=== PATIENT | female | born 1970 | race Caucasian/White ===

== ENCOUNTER 2017-09-02 10:38 | Emergency (ER) | payer BC ==
[2017-09-02] MEDS ORDERED: BP MED (10:45)
[2017-09-02 11:15] VITALS: BP 133/83
== END 2017-09-02 11:22 | disposition home or self-care (01) ==
LOC: ED 10:38
DX: S51.811A Laceration without foreign body of right forearm, initial encounter (principal); W01.118A Fall on same level from slipping, tripping and stumbling with subsequent striking against other sharp object, initial encounter; Y92.008 Other place in unspecified non-institutional (private) residence as the place of occurrence of the external cause; Z23 Encounter for immunization
CPT/HCPCS: 90715

== ENCOUNTER 2019-08-22 15:07 | Emergency (ER) | payer BC ==
[~2019-08-22] VITALS: Ht 167.6 cm; Wt 63.6 kg
[~2019-08-22 15:07] MED LIST: BP MED
[2019-08-22 15:59] LABS: ALBUMIN 4.1 g/dL (3.5-5.0); EOS % 0.3 % (1.0-5.0); HEMATOCRIT 44.5 % (37.0-47.0); HEMOGLOBIN 14.9 g/dL (12.5-16.0); LYMPH# 1.3 (1.50-4.00); MEAN CELL VOLUME 89 fl (78-100); MEAN CORPUSCULAR HEMOGLOBIN 30 pg (27-31); MEAN CORPUSCULAR HGB CONC 34 g/dL (33-37); MEAN PLATELET VOLUME 9.5 fl (7.4-10.4); MONO # 0.5 (0.20-0.80); NEU # 4.4 (1.40-6.50); PLATELET COUNT 265 K/mm3 (130-400); POTASSIUM 3.7 mmol/L (3.5-5.1); RED BLOOD COUNT 4.98 M/mm3 (4.10-5.30); RED CELL DISTRIBUTION WIDTH 12.7 % (11.5-14.5); WHITE BLOOD COUNT 6.2 K/mm3 (4.8-10.8)
[2019-08-22 16:02] LABS: TOTAL PROTEIN 6.9 g/dL (6.4-8.3)
[2019-08-22 16:04] LABS: TOTAL BILIRUBIN 0.7 mg/dL (0.2-1.2)
[2019-08-22] MEDS ORDERED: METOPROLOL SUCC50 M1 PO (16:18)
[2019-08-22] MEDS ORDERED: LISINOPRIL10 MG PO (17:01)
[2019-08-22 17:25] VITALS: BP 156/62
[2019-08-22 17:47] LABS: PH-URINE 5.5 (5.0 - 8.0); URINE APPEARANCE HAZY; URINE BILIRUBIN NEGATIVE (NEGATIVE); URINE BLOOD 250 ery/uL (NEGATIVE); URINE COLOR YELLOW; URINE GLUCOSE NEGATIVE (NEGATIVE); URINE KETONE 1+ (NEGATIVE); URINE LEUKOCYTE ESTERASE NEGATIVE (NEGATIVE); URINE NITRATE NEGATIVE (NEGATIVE); URINE PROTEIN(semi-quant) TRACE mg/dL (NEGATIVE); URINE UROBILINOGEN NORMAL (NORMAL)
[2019-08-22 17:48] LABS: URINE MUCUS PRESENT (NOT PRESENT)
== END 2019-08-22 17:25 | disposition home or self-care (01) ==
LOC: ED 15:07
PROVIDERS: Nurse Practitioner Primary Care
DX: I10 Essential (primary) hypertension (principal)

== ENCOUNTER → 2020-03-22 | Outpatient (CLI) | payer BC ==
[~2020-03-22] MED LIST changes: +LISINOPRIL10 MG PO; +METOPROLOL SUCC50 M1 PO
== END ==
LOC: LAB 10:58
DX: U07.1 COVID-19 (principal)